=== PATIENT | male | born 1990 | race Caucasian/White ===

== ENCOUNTER 2016-06-07 11:21 | Emergency (ER) | payer OTHER ==
[~2016-06-07] VITALS: Ht 175.3 cm; Wt 88.0 kg
[2016-06-07 11:22] VITALS: BP 136/79
[2016-06-07] MEDS ORDERED: ZANTTAB PO (11:28)
[2016-06-07] MEDS ORDERED: PRIL20CA9 PO (11:50)
== END 2016-06-07 11:59 | disposition home or self-care (01) ==
LOC: M ED 11:57
DX: K21.9 Gastro-esophageal reflux disease without esophagitis (principal)

== ENCOUNTER 2016-06-16 15:56 | Emergency (ER) | payer OTHER ==
[~2016-06-16] VITALS: Ht 175.3 cm; Wt 86.2 kg
[~2016-06-16 15:56] MED LIST: PRIL20CA9 PO; ZANTTAB PO
[2016-06-16] MEDS ORDERED: NS 1,000 ML IV ONE (16:45)
[2016-06-16] MEDS ORDERED: KETOROLAC 30 MG/ML VIAL (J1885) IV ONE (16:45)
[2016-06-16] MEDS ORDERED: MORPHINE 4 MG/ML 1ML SYRINGE IV ONE (16:45)
[2016-06-16] MEDS ORDERED: ONDANSETRON 4MG/2ML VIAL (J2405) IV ONE (16:45)
[2016-06-16 17:08] LABS: BASO % 0.2 % (0.0-1.0); EOS % 0.3 % (0.0-3.0); LARGE UNSTAINED CELL # 0.2 K/mm3 (0.0-0.4); LARGE UNSTAINED CELL % 1.1 % (0.0-4.0); LYMPH # 1.4 K/mm3 (1.5-6.5); LYMPH % 8.1 % (24.0-44.0); MEAN CORPUSCULAR HEMOGLOBIN 31.4 pg (27.0-33.0); MEAN CORPUSCULAR VOLUME 92.3 fl (80.0-96.0); MONO # 0.7 K/mm3 (0.0-0.8); MONO % 3.8 % (0.0-5.0); NEUTROPHILS # 14.8 K/mm3 (1.8-7.7); NEUTROPHILS % 86.5 % (36.0-66.0); PLATELET COUNT, AUTOMATED 659 k/mm3 (150-450); RED CELL DISTRIBUTION WIDTH 12.6 % (11.5-14.5); WHITE BLOOD COUNT 17.1 K/mm3 (4.0-10.0)
[2016-06-16 17:31] LABS: ALBUMIN 4.7 GM/DL (3.2-5.2); ALBUMIN/GLOBULIN RATIO 1.52 (1.00-1.93); ALKALINE PHOSPHATASE 53 U/L (45-117); ALT/SGPT 44 U/L (12-78); ANION GAP 9 MEQ/L (8-16); AST/SGOT 27 U/L (15-37); BILIRUBIN,DIRECT 0.2 MG/DL (0.0-0.2); BILIRUBIN,TOTAL 0.8 MG/DL (0.2-1.0); BLOOD UREA NITROGEN 18 MG/DL (7-18); CALCIUM LEVEL 9.4 MG/DL (8.5-10.1); CARBON DIOXIDE LEVEL 28 MEQ/L (21-32); CHLORIDE LEVEL 103 MEQ/L (98-107); CREATININE FOR GFR 1.21 MG/DL (0.70-1.30); GLOMERULAR FILTRATION RATE > 60.0 (>60); GLUCOSE, FASTING 91 MG/DL (70-105); POTASSIUM SERUM 3.9 MEQ/L (3.5-5.1); SODIUM LEVEL 140 MEQ/L (136-145); TOTAL PROTEIN 7.8 GM/DL (6.4-8.2)
[2016-06-16] MEDS ORDERED: HYDR-3713 PO (17:47)
[2016-06-16] MEDS ORDERED: ZOFR4TAB3 PO (17:47)
[2016-06-16 17:49] VITALS: BP 105/60
--- NOTE | 2016-06-16 17:59 | REP ---
CT ABDOMEN: HISTORY: Renal calculi. Patient has renal colic. COMPARISON: 01/15/2016 A limited evaluation of the solid intraabdominal organs and gallbladder show no gross abnormalities or significant changes from the prior exam. There is no nephrolithiasis or hydronephrosis. There is mild left hydroureter and periureteral edema. In the distal left ureter there is a tiny 2 mm sized calculus. There are no urinary bladder calcifications. There is a left hemipelvic phlebolith status quo. Limited evaluation of the pancreas and adrenal glands show no gross abnormalities or significant changes from the prior exam. Limited evaluation of the bowel loops and their mesenteries show no gross abnormalities or significant changes from the prior exam. No free fluid or free air is seen in the abdomen or pelvis. The osseous structure is stable. IMPRESSION: Tiny distal left ureterolith resulting in subtle left sided hydroureter and mild periureteral edema but no hiren hydronephrosis. Signed by Abner Joaquin DO 06/16/2016 07:11 P
== END 2016-06-16 17:55 | disposition home or self-care (01) ==
LOC: M ED 17:54
DX: N20.1 Calculus of ureter (principal); Z87.442 Personal history of urinary calculi
CPT/HCPCS: 74176; 80048; 80076; 81001; 83690; 85025; 87086; 96361; 96374; 96375; 99283; J1885; J2405

== ENCOUNTER 2016-07-05 10:15 | Emergency (ER) | payer OTHER ==
[~2016-07-05] VITALS: Ht 175.3 cm; Wt 86.2 kg
[~2016-07-05 10:15] MED LIST changes: +HYDR-3713 PO; +ZOFR4TAB3 PO
[2016-07-05] MEDS ORDERED: TUMS500C PO (10:24)
[2016-07-05] MEDS ORDERED: [UNRECOGNIZED DRUG - CODE] PO (10:24)
[2016-07-05] MEDS ORDERED: NS 1,000 ML IV ONE (10:45)
[2016-07-05] MEDS ORDERED: ONDANSETRON 4MG/2ML VIAL (J2405) IV ONE (10:45)
[2016-07-05] MEDS ORDERED: KETOROLAC 30 MG/ML VIAL (J1885) IV ONE (10:45)
[2016-07-05 10:57] LABS: BASO % 0.7 % (0.0-1.0); EOS # 0.1 K/mm3 (0.0-0.50); EOS % 1.3 % (0.0-3.0); LARGE UNSTAINED CELL # 0.2 K/mm3 (0.0-0.4); LARGE UNSTAINED CELL % 2.7 % (0.0-4.0); LYMPH # 0.9 K/mm3 (1.5-6.5); LYMPH % 13.8 % (24.0-44.0); MEAN CORPUSCULAR HEMOGLOBIN 31.9 pg (27.0-33.0); MEAN CORPUSCULAR HGB CONC 34.4 g/dl (32.0-36.5); MEAN CORPUSCULAR VOLUME 92.6 fl (80.0-96.0); MONO # 0.3 K/mm3 (0.0-0.8); MONO % 4.8 % (0.0-5.0); NEUTROPHILS # 4.3 K/mm3 (1.8-7.7); NEUTROPHILS % 76.7 % (36.0-66.0); PLATELET COUNT, AUTOMATED 352 k/mm3 (150-450); WHITE BLOOD COUNT 5.6 K/mm3 (4.0-10.0)
[2016-07-05 11:12] LABS: ALBUMIN 4.2 GM/DL (3.2-5.2); ALBUMIN/GLOBULIN RATIO 1.14 (1.00-1.93); ALKALINE PHOSPHATASE 102 U/L (45-117); ALT/SGPT 85 U/L (12-78); ANION GAP 7 MEQ/L (8-16); AST/SGOT 34 U/L (15-37); BILIRUBIN,DIRECT 0.2 MG/DL (0.0-0.2); BILIRUBIN,TOTAL 0.8 MG/DL (0.2-1.0); BLOOD UREA NITROGEN 15 MG/DL (7-18); CALCIUM LEVEL 8.8 MG/DL (8.5-10.1); CARBON DIOXIDE LEVEL 30 MEQ/L (21-32); CHLORIDE LEVEL 102 MEQ/L (98-107); CREATININE FOR GFR 1.08 MG/DL (0.70-1.30); GLOMERULAR FILTRATION RATE > 60.0 (>60); GLUCOSE, FASTING 91 MG/DL (70-105); POTASSIUM SERUM 3.6 MEQ/L (3.5-5.1); SODIUM LEVEL 139 MEQ/L (136-145); TOTAL PROTEIN 7.9 GM/DL (6.4-8.2)
[2016-07-05 11:27] VITALS: BP 121/69
--- NOTE | 2016-07-05 11:30 | REP ---
RIGHT UPPER QUADRANT ULTRASOUND: Real-time sonographic evaluation of the right upper quadrant performed. The gallbladder demonstrates no evidence of intraluminal sludge or calculi, wall thickening or pericholecystic fluid. There is no intrahepatic or extrahepatic biliary dilatation, common bile duct measuring 3 mm in diameter. The liver and pancreas demonstrate homogeneous echotexture with no gross mass, pancreas is not optimally seen due to overlying bowel gas. Right kidney demonstrates no hydronephrosis or nephrolithiasis with normal size at 11.7 cm in length. IMPRESSION: Negative right upper quadrant ultrasound. Signed by Noel Verdugo MD 07/05/2016 04:46 P
[2016-07-05] MEDS ORDERED: CARA1TAB2 PO (11:34)
[2016-07-05] MEDS ORDERED: ULTR50TA PO (11:35)
== END 2016-07-05 11:50 | disposition home or self-care (01) ==
LOC: M ED 10:41
DX: K29.00 Acute gastritis without bleeding (principal); R31.9 Hematuria, unspecified; Z87.442 Personal history of urinary calculi; Z79.899 Other long term (current) drug therapy
CPT/HCPCS: 76705; 80048; 80076; 81001; 83690; 85025; 96374; 96375; 99282; J1885; J2405

== ENCOUNTER 2017-10-24 22:37 | Emergency (ER) | payer MEDICAID, OTHER ==
[2017-10-24] MEDS: MORPHINE 4 MG/ML 1ML VIAL/SYRINGE (J2270) IV ×2 (22:52→23:50)
[2017-10-24] MEDS: KETOROLAC 30 MG/ML VIAL (J1885) IV (22:53)
[2017-10-24] MEDS: NS 1,000 ML IV (22:53)
[2017-10-24] MEDS: ONDANSETRON 4MG/2ML VIAL (J2405) IV (22:53)
[2017-10-24 23:09] LABS: HEMATOCRIT 50.7 % (42.0-52.0); HEMOGLOBIN 17.3 g/dl (13.5-17.5); MEAN CORPUSCULAR HEMOGLOBIN 31.5 pg (27.0-33.0); MEAN CORPUSCULAR HGB CONC 34.1 g/dl (32.0-36.5); MEAN CORPUSCULAR VOLUME 92.2 fl (80.0-96.0); PLATELET COUNT, AUTOMATED 963 10^3/uL (150-450); RED CELL DISTRIBUTION WIDTH 13.1 % (11.5-14.5); WHITE BLOOD COUNT 16.9 10^3/uL (4.0-10.0)
[2017-10-24 23:25] LABS: CALCIUM OXALATE CRYSTALS RFX MODERATE; KETONE, URINE AUTO RFX NEGATIVE (NEGATIVE); LEUKOCYTE ESTERASE UR AUTO RFX NEGATIVE (NEGATIVE); MUCUS, URINE RFX SMALL (NEGATIVE); NITRITE, URINE AUTO RFX NEGATIVE (NEGATIVE); RBC, URINE AUTO RFX TNTC /HPF (0-3); SPECIFIC GRAVITY UR AUTO RFX 1.028 (1.002-1.035); SQUAM EPITHELIAL CELL UR AURFX 0 /HPF (0-6); WBC, URINE AUTO RFX 1 /HPF (0-3)
[2017-10-24 23:26] LABS: ADD MANUAL DIFFER YES; DIFF SLIDE NUMBER 420; POSITIVE DIFF POS FLAG
[2017-10-24 23:43] LABS: ANION GAP 7 MEQ/L (8-16); BLOOD UREA NITROGEN 18 MG/DL (7-18); CALCIUM LEVEL 10.1 MG/DL (8.5-10.1); CARBON DIOXIDE LEVEL 29 MEQ/L (21-32); CHLORIDE LEVEL 103 MEQ/L (98-107); CREATININE FOR GFR 1.26 MG/DL (0.70-1.30); GLOMERULAR FILTRATION RATE > 60.0 (>60); GLUCOSE, FASTING 107 MG/DL (70-100); POTASSIUM SERUM 4.8 MEQ/L (3.5-5.1); SODIUM LEVEL 139 MEQ/L (136-145)
[2017-10-24 23:54] LABS: EOSINOPHILS 1 % (0-5); LYMPHOCYTES 24 % (16-52); MONOCYTES 6 % (0-8); NEUTROPHILS 69 % (35-75); PLATELET ESTIMATE INCREASED (NORMAL)
[2017-10-25] MEDS: OXYCODONE/APAP 5MG/325MG(BULK FOR ED) 1 TABLET PO (01:00)
== END 2017-10-25 01:12 | disposition home or self-care (01) ==
LOC: M ED 22:37
DX: R10.9 Unspecified abdominal pain (principal); N13.30 Unspecified hydronephrosis; Z87.442 Personal history of urinary calculi; K21.9 Gastro-esophageal reflux disease without esophagitis; Z79.899 Other long term (current) drug therapy
CPT/HCPCS: J2270

== ENCOUNTER → 2017-11-13 | Outpatient (CLI) | payer MEDICAID ==
[2017-11-13 09:25] LABS: ALBUMIN 4.2 GM/DL (3.2-5.2); ALKALINE PHOSPHATASE 59 U/L (45-117); ALT/SGPT 26 U/L (12-78); ANION GAP 8 MEQ/L (8-16); AST/SGOT 17 U/L (7-37); BILIRUBIN,TOTAL 0.3 MG/DL (0.2-1.0); BLOOD UREA NITROGEN 19 MG/DL (7-18); CARBON DIOXIDE LEVEL 30 MEQ/L (21-32); CHLORIDE LEVEL 105 MEQ/L (98-107); CREATININE FOR GFR 1.04 MG/DL (0.70-1.30); GLOMERULAR FILTRATION RATE > 60.0 (>60); GLUCOSE, FASTING 83 MG/DL (70-100); LIPASE 131 U/L (73-393); POTASSIUM SERUM 4.5 MEQ/L (3.5-5.1); SODIUM LEVEL 143 MEQ/L (136-145); TOTAL PROTEIN 7.1 GM/DL (6.4-8.2)
[2017-11-13 10:51] LABS: ALBUMIN/GLOBULIN RATIO 0.69 (1.00-1.93)
== END ==
LOC: M RAD 07:38
DX: R10.13 Epigastric pain (principal)
CPT/HCPCS: 76705

== ENCOUNTER 2020-08-29 16:19 | Emergency (ER) | payer MEDICAID ==
[~2020-08-29] VITALS: Ht 177.8 cm; Wt 92.7 kg
[~2020-08-29 16:19] MED LIST changes: +CARA1TAB6 PO; +TUMS500C PO; +ULTR50TA8 PO; +ZANT150T40 PO; -ZANTTAB PO; +ZOFR4TAB14 PO; -ZOFR4TAB3 PO; +[UNRECOGNIZED DRUG - CODE] PO
[2020-08-29] MEDS ORDERED: ONDANSETRON 4 MG ORAL DISINTEGRATING TAB PO ONE (17:20)
[2020-08-29] MEDS ORDERED: KETOROLAC 30 MG/ML 1ML VIAL IV ONE (17:20)
[2020-08-29] MEDS ORDERED: TAMSULOSIN 0.4 MG CAP PO ONE (17:50)
[2020-08-29] MEDS ORDERED: NS 1,000 ML IV ONE (17:50)
[2020-08-29 18:25] LABS: BLOOD UREA NITROGEN 21 MG/DL (7-18); CALCIUM LEVEL 9.5 MG/DL (8.5-10.1); CARBON DIOXIDE LEVEL 23 MEQ/L (21-32); CHLORIDE LEVEL 109 MEQ/L (98-107); GLOMERULAR FILTRATION RATE > 60.0 (>60); GLUCOSE, FASTING 97 MG/DL (70-100); POTASSIUM SERUM 3.8 MEQ/L (3.5-5.1); SODIUM LEVEL 139 MEQ/L (136-145)
[2020-08-29 18:37] LABS: BASO # 0.1 10^3/uL (0.0-0.2); BASO % 0.5 % (0.0-1.0); EOS % 0.1 % (0.0-3.0); HEMOGLOBIN 15.9 g/dl (13.5-17.5); LYMPH # 1.8 10^3/uL (1.5-5.0); LYMPH % 11.3 % (24.0-44.0); MEAN CORPUSCULAR HEMOGLOBIN 31.6 pg (27.0-33.0); MEAN CORPUSCULAR HGB CONC 34.6 g/dl (32.0-36.5); MEAN CORPUSCULAR VOLUME 91.5 fl (80.0-96.0); MONO # 0.9 10^3/uL (0.0-0.8); MONO % 5.8 % (2.0-8.0); NEUTROPHILS # 12.6 10^3/uL (1.5-8.5); NEUTROPHILS % 81.8 % (36.0-66.0); PLATELET COUNT, AUTOMATED 427 10^3/uL (150-450); RED BLOOD COUNT 5.03 10^6/uL (4.30-6.10); WHITE BLOOD COUNT 15.4 10^3/uL (4.0-10.0)
--- NOTE | 2020-08-29 18:50 | REP ---
INDICATION: left flank pain, hx stones COMPARISON: None TECHNIQUE: Real time samuels scale ultrasound examination using curved array transducer. FINDINGS: Bilateral kidneys are normal in contour, size, echogenicity, and reniform shape. No hydronephrosis, nephrolithiasis, cystic or renal mass lesion. No perinephric fluid collection. Bladder is under distended and grossly normal. Right kidney measures 11.4 x 4.5 x 3.8 cm. Left kidney measures 11.7 x 5.3 x 5.1 cm. IMPRESSION: 1. Normal renal ultrasound. <Electronically signed by Joni Perry > 08/29/20 [id number]
[2020-08-29] MEDS ORDERED: ONDANSETRON 4MG/2ML VIAL IV ONE (19:15)
[2020-08-29] MEDS ORDERED: MORPHINE 4 MG/ML 1ML VIAL/SYRINGE (J2270) IV ONE (21:00)
[2020-08-29] MEDS ORDERED: FLOM0.4C39 PO (21:24)
[2020-08-29] MEDS ORDERED: NORCO 5/325MG TABLET (BULK FOR ED) PO ONE (21:25)
[2020-08-29] MEDS ORDERED: METOCLOPRAMIDE 10 MG TAB PO ONE (21:45)
[2020-08-29 22:09] VITALS: BP 119/74
--- NOTE | 2020-08-30 08:14 | REP ---
INDICATION: left flank pain repeat dictation. Preliminary report is provided at the time of the exam by kennedy MESSER. COMPARISON: Comparison CT study October 24, 2017.. TECHNIQUE: Helical scanning is acquired and 3 mm axial images were reformatted. Coronal and sagittal MPR images were generated and reviewed. FINDINGS: The preliminary digital supervisor decorating radiograph is unremarkable. The lung bases are clear on axial CT images. The liver and the spleen are at the upper range of normal in size but homogeneous in texture. No focal hepatic or splenic lesion is seen. Normal adrenal glands are observed. No abnormality is noted in the pancreas or the gallbladder. Small and large intestinal bowel loops are normal. No retroperitoneal mass or adenopathy is seen. There is a small area of intraluminal density in the appendix which may be a appendicular lith. No appendiceal inflammation or dilation is seen. There is no evidence of free air or ascites. There is moderate hydronephrosis and hydroureter on the left. There is perinephric and periureteral edema. There is an obstructing 3 mm calculus in the distal ureter just above the ureterovesical junction on the left. There is a left pelvic phlebolith which is unchanged. No intrarenal calculus is observed on either side. No right-sided hydronephrosis. IMPRESSION: Obstructing 3 mm distal ureteral calculus on the left with moderate left-sided hydronephrosis and hydroureter. <Electronically signed by Kamran Obregon > 08/30/20 [id number]
== END 2020-08-29 22:11 | disposition home or self-care (01) ==
LOC: M ED 16:19
DX: N20.1 Calculus of ureter (principal)
CPT/HCPCS: 74176; 76775; 80048; 81001; 85025; 96361; 96374; 96375; 99283; J1885; J2270; J2405; Q0162

== ENCOUNTER 2021-10-28 07:01 | Emergency (ER) | payer MEDICAID, OTHER ==
[~2021-10-28] VITALS: Ht 177.8 cm; Wt 93.2 kg
[~2021-10-28 07:01] MED LIST changes: +FLOM0.4C39 PO
[2021-10-28] MEDS ORDERED: PRED10TA2 PO (08:58)
[2021-10-28] MEDS ORDERED: predniSONE 20 MG TAB PO ONE (09:05)
[2021-10-28 09:13] VITALS: BP 122/78
== END 2021-10-28 09:15 | disposition home or self-care (01) ==
LOC: M ED 07:01
DX: L25.5 Unspecified contact dermatitis due to plants, except food (principal)
CPT/HCPCS: 99283; J7512

== ENCOUNTER 2024-02-29 02:54 | Emergency (ER) | payer OTHER ==
[~2024-02-29] VITALS: Ht 175.3 cm; Wt 95.7 kg
[~2024-02-29 02:54] MED LIST changes: +PRED10TA2 PO
[2024-02-29 02:58] VITALS: TEMP 97.4
[2024-02-29 04:33] LABS: BASO % 0.6 % (0.0-1.0); EOS # 0.1 10^3/uL (0.0-0.5); EOS % 1.4 % (0.0-3.0); HEMATOCRIT 42.7 % (42.0-52.0); HEMOGLOBIN 14.3 g/dl (13.5-17.5); LYMPH # 2.2 10^3/uL (1.5-5.0); LYMPH % 30.3 % (24.0-44.0); MEAN CORPUSCULAR HEMOGLOBIN 32.3 pg (27.0-33.0); MEAN CORPUSCULAR HGB CONC 33.5 g/dl (32.0-36.5); MEAN CORPUSCULAR VOLUME 96.4 fl (80.0-96.0); MONO # 0.5 10^3/uL (0.0-0.8); MONO % 7.1 % (2.0-8.0); NEUTROPHILS # 4.4 10^3/uL (1.5-8.5); NEUTROPHILS % 60.3 % (36.0-66.0); PLATELET COUNT, AUTOMATED 240 10^3/uL (150-450); RED BLOOD COUNT 4.43 10^6/uL (4.30-6.10); WHITE BLOOD COUNT 7.2 10^3/uL (4.0-10.0)
[2024-02-29 05:00] LABS: LIPASE 31 U/L (12-53)
[2024-02-29] MEDS: TAMSULOSIN 0.4 MG CAP PO ONE (05:00)
[2024-02-29] MEDS: KETOROLAC 30 MG/ML 1ML VIAL IV ONE (05:01)
[2024-02-29 05:02] LABS: ALBUMIN 3.8 G/DL (3.2-5.2); ALKALINE PHOSPHATASE 63 U/L (40-129); ALT/SGPT 35 U/L (7.0-40); AST/SGOT 25 U/L (<34); BILIRUBIN,DIRECT < 0.1 MG/DL (<0.4); BILIRUBIN,TOTAL 0.2 MG/DL (0.3-1.2); BLOOD UREA NITROGEN 18 MG/DL (9-23); CALCIUM LEVEL 9.1 MG/DL (8.5-10.1); CARBON DIOXIDE LEVEL 34 MMOL/L (20-31); CHLORIDE LEVEL 106 MMOL/L (98-107); CREATININE FOR GFR 1.01 MG/DL (0.70-1.30); GLOMERULAR FILTRATION RATE > 60.0 (>60); GLUCOSE, FASTING 101 MG/DL (60-100); SODIUM LEVEL 144 MMOL/L (136-145); TOTAL PROTEIN 6.4 G/DL (5.7-8.2)
[2024-02-29 05:30] VITALS: BP 106/69; O2SAT 96
[2024-02-29] MEDS ORDERED: FLOM0.4C39 PO (05:31)
[2024-02-29] MEDS ORDERED: KETO10TAB PO (05:31)
[2024-02-29] MEDS ORDERED: ONDA-282 PO (05:31)
== END 2024-02-29 05:45 | disposition home or self-care (01) ==
LOC: M ED 02:54
DX: N20.0 Calculus of kidney (principal); Z87.442 Personal history of urinary calculi
CPT/HCPCS: 74176; 80048; 80076; 81001; 83690; 85025; 96374; 99284; J1885